=== PATIENT | male | born 1955 | race Caucasian/White ===

== ENCOUNTER 2017-06-10 19:53 | Emergency (ER) | payer MEDICARE, SELFPAY ==
[2017-06-10 19:55] VITALS: BP 100/72; PULSE 100; RESP 20; TEMP 36.7; O2SAT 97; BMI 23.8
--- NOTE | 2017-06-10 20:39 | ED.VISSUMM ---
- ER Visit Summary Date of Service: 06/10/17 Chief Complaint: Pain with nausea and vomiting ?1 History of Present Illness: The patient is a 61 M who has had viral-like symptoms for approximately week. He presented because he had abdominal pain that was social with nausea and vomiting ?1. He denies hematemesis, melena hematochezia. He denies fever or chills. Does complain of mild headache and postnasal drainage presently. His abdominal pain and nausea resolved. He has absolutely no other complaints please see written note. Physical Examination: Vitals are normal for patient. He normally runs a low blood pressure. HEENT exam is remarkable postnasal drainage and mild nasal mucosa bogginess with clear drainage. Heart is regular without murmur, gallop or rub. S1 and S2 are normal. Lungs are clear to auscultation with good movement of air bilaterally. Abdomen is soft and nontender. There is no guarding or peritoneal findings. There is no palpable pulsatile mass. There is no abdominal bruit. Crump sign is negative. Negative Rovsing sign. There is no evidence of inguinal or umbilical hernia. Patient is alert and oriented ?3. Motor is 5 over 5. Sensory is intact. DTRs are symmetric with no clonus or Babinski sign. Cranial 2 through 12 are intact. Cerebellar testing is normal. Test Results: None Emergency Department Course and Treatment: Patient was treated with one [place] tablet for his headache so he could sleep. He was informed he has a viral illness and that there is no specific treatment. Treatment Plan: [place] tablet for headache Disposition: Discharge to home with friend Impression: 1. Acute abdominal pain with nausea and vomiting, resolved 2. Viral illness This note was generated with [employer] dictation software. It may contain incorrect words, spelling, and punctuation that were not noted in review of the chart prior to signing ED Disposition - Plan for ED Patient: Disposition: Home or Assisted Living Chief Complaint: Weakness Instructions: ED Viral Syndrome Referrals: Ollie Benson MD [Primary Care Provider] - 1 Week if not improving
--- NOTE | 2017-06-10 20:42 | ED.DCSUM_ITS ---
- ER Visit Summary Date of Service: 06/10/17 Chief Complaint: Pain with nausea and vomiting ?1 History of Present Illness: The patient is a 61 M who has had viral-like symptoms for approximately week. He presented because he had abdominal pain that was social with nausea and vomiting ?1. He denies hematemesis, melena hematochezia. He denies fever or chills. Does complain of mild headache and postnasal drainage presently. His abdominal pain and nausea resolved. He has absolutely no other complaints please see written note. Physical Examination: Vitals are normal for patient. He normally runs a low blood pressure. HEENT exam is remarkable postnasal drainage and mild nasal mucosa bogginess with clear drainage. Heart is regular without murmur, gallop or rub. S1 and S2 are normal. Lungs are clear to auscultation with good movement of air bilaterally. Abdomen is soft and nontender. There is no guarding or peritoneal findings. There is no palpable pulsatile mass. There is no abdominal bruit. Crump sign is negative. Negative Rovsing sign. There is no evidence of inguinal or umbilical hernia. Patient is alert and oriented ? 3. Motor is 5 over 5. Sensory is intact. DTRs are symmetric with no clonus or Babinski sign. Cranial 2 through 12 are intact. Cerebellar testing is normal. Test Results: None Emergency Department Course and Treatment: Patient was treated with one [place] tablet for his headache so he could sleep. He was informed he has a viral illness and that there is no specific treatment. Treatment Plan: [place] tablet for headache Disposition: Discharge to home with friend Impression: 1. Acute abdominal pain with nausea and vomiting, resolved 2. Viral illness This note was generated with [employer] dictation software. It may contain incorrect words, spelling, and punctuation that were not noted in review of the chart prior to signing ED Disposition - Plan for ED Patient: Disposition: Home or Assisted Living Chief Complaint: Weakness Instructions: ED Viral Syndrome Referrals: Ollie Benson MD [Primary Care Provider] - 1 Week if not improving
[2017-06-10] MEDS: HYDROcodone Bitartrate/Apap 5/325 Tablet PO (20:52)
[2017-06-10 20:55] VITALS: BP 101/67; PULSE 72; RESP 16; O2SAT 95
== END 2017-06-10 20:56 | disposition home or self-care (01) ==
PROVIDERS: Emergency Provider Emergency Medicine; Family Provider Family Medicine; PCP Family Medicine
DX: R10.9 Unspecified abdominal pain (principal); R11.2 Nausea with vomiting, unspecified; B34.9 Viral infection, unspecified; J44.9 Chronic obstructive pulmonary disease, unspecified; I10 Essential (primary) hypertension; Z72.0 Tobacco use; Z79.51 Long term (current) use of inhaled steroids; Z79.899 Other long term (current) drug therapy
CPT/HCPCS: 99284; J7030